=== PATIENT | male | born 1985 | race Caucasian/White ===

== ENCOUNTER 2017-03-17 13:02 | Emergency (ER) | payer OTHER ==
[~2017-03-17] VITALS: Ht 177.8 cm; Wt 90.9 kg
[2017-03-17 13:07] VITALS: BP 142/95; PULSE 79; RESP 16; O2SAT 100
--- NOTE | 2017-03-17 14:35 | ED.REPORT ---
HPI-General Illness Date of Service Mar 17, 2017 ED Provider: Romario Colón DO A 31 year old male with no pertinent medical history presents to the ED following a needlestick injury. 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 The pt knows the identity of the pt whose blood he was exposed to, and the concern for bloodborne pathogens is low. The pt declines post- exposure prophylaxis. He has had his blood drawn for laboratory testing. Nursing Notes Stated Complaint: NEEDLE STICK/WORK RELATED Chief Complaint: Post Exposure Body Fluids Nursing Notes Reviewed: Yes Allergies: Coded Allergies: No Known Allergies (Unverified , 03/17/17) General Time Seen by MD: 14:33 Chief Complaint Other (needle stick injury) Hx Obtained From: Patient Arrived By: Walk-in Sudden in Onset?: Yes Onset Occurred: 31 - 45 minutes ago Symptom Duration: Since onset Recent Healthcare: No recent doctor visit, No recent hospitalization Similar Sx Previous: No Past Medical History Past Medical History none reported Past Surgical History none reported Smoking History Unknown if Ever Smoker Occupation works as [employer] nurse Ambulatory Status Independent Review of Systems needlestick injury Full Review of Systems Respiratory: Denies: Non-productive cough, Shortness of breath Cardiovascular: Denies: Chest pain GI: Denies: Abdominal pain Musculoskeletal: Reports: Extremity pain, Denies: Back pain, Neck pain Skin: Denies Rash Complete sys rev & neg: except as marked. Physical Exam Vital Signs Vital Signs Date Time Temp Pulse Resp B/P Pulse Ox O2 Delivery O2 Flow Rate FiO2 03/17/17 13:07 37 79 16 142/95 100 Room Air Initial VS: Reviewed General/Constitutional: Awake, Alert Head / Eyes: Atraumatic, Normocephalic, PERRL, EOMI ENT: Atraumatic, Airway patent, Mucous membranes moist Neck: Atraumatic, Supple, Full range of motion Respiratory / Chest: Atraumatic, Breath sounds NL, Breath sounds = bilat, No respiratory distress Cardiovascular: Heart rate NL, Regular rhythm, Heart sounds NL Abdomen: Atraumatic, Soft, Non-tender Back: Atraumatic, Full range of motion Upper Extremities Upper Extremity / MS: Full range of motion, Neurologic intact, Vascular intact Lower Extremity / Pelvis / MS: Atraumatic, Full range of motion Skin: Color NL, Warm, Dry needlestick in left index finger Neurologic: Oriented X3, Speech NL, No motor deficits, No sensory deficits Psychiatric: Affect NL, Mood NL Interpretation & Diagnostics Lab Results Interpretation Test 03/17/17 13:20 Re-Eval/Medical Decision Med Decision/Clinical Course Patient presents after needlestick exposure. Declines postexposure prophylaxis. Referred back to employee health. Time of Eval: 14:58 Patient Status: Condition improved Re-Evaluation/Progress Note: Pt informed of diagnosis and verbally discharged. The pt understands and agrees with the plan. All questions are addressed at this time. Counseled Regarding: Diagnosis, Lab results, Need for follow-up, When/why to return to ED Discharge & Departure Primary Impression: Needle stick injury Encounter type: initial encounter Qualified Code: W27.3XXA - Contact with needle (sewing), initial encounter Disposition: Home Discharge Condition All VS Reviewed: Yes Condition: Stable Scribe Attestation Portions of this note were transcribed by Tim Sotelo. I, Dr. Colón personally performed the history, physical exam and medical decision-making; I reviewed and confirmed the accuracy of the information in the transcribed note. Romario Colón DO Mar 17, 2017 14:35 TIM SOTELO Mar 17, 2017 15:00
== END 2017-03-17 14:58 | disposition home or self-care (01) ==
LOC: SED 13:02
DX: S61.231A Puncture wound without foreign body of left index finger without damage to nail, initial encounter (principal); W46.0XXA Contact with hypodermic needle, initial encounter; Y93.89 Activity, other specified; Y92.238 Other place in hospital as the place of occurrence of the external cause; Y99.0 Civilian activity done for income or pay; Z11.4 Encounter for screening for human immunodeficiency virus [HIV]
CPT/HCPCS: 36415; 86706; 87340; 99283; G0433